=== PATIENT | female | born 1980 | race Caucasian/White ===

== ENCOUNTER → 2016-05-31 | Outpatient (CLI) | payer OTHER ==
[~2016-05-31] MED LIST: LIDOCAINE 1% MDV 20ML VIAL As Ordered ONE
--- NOTE | 2016-05-31 12:18 | REP ---
THYROID ULTRASOUND: 05/31/2016 COMPARISON: 01/14/2016. CLINICAL HISTORY: Left thyroid nodule. Re-examine. The patient pending fine-needle aspiration today. The right lobe of the thyroid is 4.8 x 1.9 x 1.8 cm. Previously it was 5 x 2 x 1.3 cm. The left lobe is 5.2 x 1.7 x 1.9 cm. Previously, it measured 4.6 x 1.6 x 1.2 cm. There is a solid nodule in the left thyroid lobe 2.5 x 1.4 x 1.5 cm, previously 2.4 x 1.4 x 1.3 cm. This solid nodule has is somewhat lobulated contours and is in the mid pole and lower pole region. No other significant finding. The isthmus has a midline thickness of 4.9 mm. IMPRESSION: 1. Stable to minimally increased size of solid nodule left thyroid lobe as described above. No other change. Signed by Jv Durand MD 05/31/2016 05:07 P
--- NOTE | 2016-05-31 16:05 | REP ---
ULTRASOUND GUIDED LEFT THYROID BIOPSY: The procedure was performed under the direct supervision of Dr. Durand. The patient has a history of a 2.4 x 1.4 x 1.3 cm hypoechoic nodule in the mid lower pole of the left thyroid seen on a previous ultrasound performed on 01/14/2016 from [facility]. The risks and benefits of the procedure were explained to the patient and informed consent was obtained. The left thyroid nodule was localized using ultrasound guidance. The skin was prepped and draped in a sterile fashion. 1% lidocaine was used as a local anesthetic. Using ultrasound guidance four fine-needle aspirations were obtained using a 25-gauge needles. The patient tolerated the procedure well and there were no immediate complications. After the appropriate amount of monitored convalescence the patient was discharged from the department. Reviewed by JEANNA Benito 05/31/2016 04:32 PEdited and Signed by Jv Durand MD 05/31/2016 05:01 P
== END ==
LOC: M RADPRO 10:08
PROVIDERS: ATTEND Otolaryngology
DX: D34 Benign neoplasm of thyroid gland (principal); Z91.040 Latex allergy status; Z79.899 Other long term (current) drug therapy